=== PATIENT | female | born 1990 | race American Indian/Alaskan Native ===

== ENCOUNTER 2016-08-03 22:16 | Emergency (ER) | payer MEDICAID ==
[2016-08-03 23:25] VITALS: BP 123/81
--- NOTE | 2016-08-04 03:21 | Emergency Department Report ---
HPI - General Chief Complaint: Eye Problems Time Seen by Provider: 08/04/16 02:38 - HPI HPI: Patient is a 25-year-old female who states she has been to a temperature roommate who was diagnosed with conjunctivitis of the eye. Patient states yesterday she started to experience her left side aching and states mild swelling of that eye. Patient denies any seasonal allergies. Other than her eye itching and her concerns. Contact with her roommate she had no other problems She denies fevers/chills/loss of vision/pain in the eye/headache/blurred vision/ or any other problems. ED Past Medical Hx - Past Medical History Previous Medical History?: Yes Hx Hypertension: Yes Hx Seizures: Yes (r/t eclampsia 04/2011) - Surgical History Past Surgical History?: No - Social History Smoking Status: Current Every Day Smoker Substance Use Type: Alcohol - Medications Home Medications: Home Medications Medication Instructions Recorded Confirmed Last Taken Type Polymyxin B Sulf/Trimethoprim 1 - 2 drop OP Q3HR #10 ml 08/04/16 Unknown Rx [Polytrim Eye Drops [id number]/0.1%] ED Review of Systems ROS: Stated complaint: EYE INFECTION Other details as noted in HPI Constitutional: denies: chills, fever Eyes: denies: eye pain, eye discharge, vision change ENT: denies: ear pain, throat pain, hearing loss, epistaxis, congestion Respiratory: denies: cough, shortness of breath, wheezing Cardiovascular: denies: chest pain, palpitations Endocrine: no symptoms reported Gastrointestinal: denies: abdominal pain, nausea, diarrhea Genitourinary: denies: urgency, dysuria, frequency, hematuria, discharge Musculoskeletal: denies: back pain, joint swelling, arthralgia Skin: denies: rash, lesions Neurological: denies: headache, weakness, numbness, paresthesias, confusion Psychiatric: denies: anxiety, depression Hematological/Lymphatic: denies: easy bleeding, easy bruising Physical Exam - Physical Exam Vital Signs: Vital Signs 08/03/16 23:21 Temperature 99 F Pulse Rate 73 Respiratory 16 Rate Blood Pressure 123/81 [Right] O2 Sat by Pulse 100 Oximetry Physical Exam: GENERAL: Alert and oriented x3, no apparent distress, Normal Gait, atraumatic. HEAD: Head is normocephalic and a-traumatic. EYES: Extra ocular muscles are intact. Pupils are equal, round, and reactive to light and accommodation. Mild orbital edema, nontender to palpation. Sclerae is white nonerythematous bilaterally. Visual acuity test normal. NECK: Supple. Non edematous, No carotid bruits. No lymphadenopathy or thyromegaly. No C-spine tenderness LUNGS: Symetrical with respiration, No wheezing, no rales or crackles, CTAB. HEART: S1, S2 present, regular rate and rhythm without murmur, no rubs, no gallops. SKIN: Warm and dry, No lesions, No ulceration or induration present. ED Course Vital Signs 08/03/16 23:21 Temperature 99 F Pulse Rate 73 Respiratory 16 Rate Blood Pressure 123/81 [Right] O2 Sat by Pulse 100 Oximetry ED Medical Decision Making - Medical Decision Making 26 female presents with conjunctivitis contact ED course: Discussed the patient to use drops as prescribed for 5 days Discussed the patient contact the roommate Vital signs are normal patient is in no acute distress. Patient patient has no visual injuries or problems. Vision is intact. Discussed patient follow up with primary care physician as prescribed Patient states she understands instructions given and will follow up. Critical care attestation.: If time is entered above; I have spent that time in minutes in the direct care of this critically ill patient, excluding procedure time. ED Disposition Clinical Impression: Acute allergic conjunctivitis Qualifiers: Laterality: left Qualified Code(s): H10.12 - Acute atopic conjunctivitis, left eye Conjunctivitis Qualifiers: Conjunctivitis type: unspecified Laterality: left Qualified Code(s): H10.9 - Unspecified conjunctivitis Disposition: DISCHARGED TO HOME OR SELFCARE Is pt being admited?: No Does the pt Need Aspirin: No Condition: Stable Instructions: Conjunctivitis (ED) Prescriptions: Polymyxin B Sulf/Trimethoprim [Polytrim Eye Drops [id number]/0.1%] 1 - 2 drop OP Q3HR #10 ml Referrals: PRIMARY CARE, [Primary Care Provider] - 3-5 Days [facility] [Outside] - 3-5 Days Forms: Accompanied Note, Work/School Release Form(ED) Time of Disposition: 03:31
== END 2016-08-04 03:50 | disposition home or self-care (01) ==
LOC: ED 22:16
DX: H10.12 Acute atopic conjunctivitis, left eye (principal); H10.9 Unspecified conjunctivitis; I10 Essential (primary) hypertension; F17.200 Nicotine dependence, unspecified, uncomplicated
CPT/HCPCS: 99282

== ENCOUNTER 2018-05-12 17:08 | Emergency (ER) | payer MEDICAID ==
[2018-05-12] MEDS ORDERED: TYLENOL PO STA (17:55)
--- NOTE | 2018-05-12 17:56 | Emergency Department Report ---
Blank Doc - Documentation Documentation: 28 y/o c/o of throbbing headache associated with HTN, Fever of 105 at home, co ryza, chills and weakness. no visual changes or trauma. syncope
[2018-05-12 19:11] LABS: Basophils % (Auto) 0.4 % (0.0-1.8); Hematocrit 41.5 % (30.3-42.9); Hemoglobin 14.1 gm/dl (10.1-14.3); Lymphocytes # (Auto) 1.1 K/mm3 (1.2-5.4); Lymphocytes % (Auto) 15.2 % (13.4-35.0); Mean Corpuscular HGB Conc 34 % (30-34); Mean Corpuscular Volume 85 fl (79-97); Monocytes # (Auto) 0.9 K/mm3 (0.0-0.8); Monocytes % (Auto) 12.7 % (0.0-7.3); Platelet Count 152 K/mm3 (140-440); Red Blood Count 4.87 M/mm3 (3.65-5.03); Red Cell Distribution Width 13.7 % (13.2-15.2)
[2018-05-12 19:30] LABS: Bilirubin,Urine NEG (Negative); Blood,Urine NEG (Negative); Color,Urine Yellow (Yellow); Mucus,Urine FEW /HPF; Urobilinogen,Urine < 2.0 mg/dL (<2.0)
[2018-05-12 19:37] LABS: HCG Qualitative,Urine Negative (Negative)
[2018-05-12 20:00] LABS: BUN/Creatinine Ratio 9; Blood Urea Nitrogen 6 mg/dL (7-17); Calcium 9.4 mg/dL (8.4-10.2); Hemolysis Index 21
[2018-05-12 20:01] VITALS: BP 151/91
--- NOTE | 2018-05-12 20:19 | Emergency Department Report ---
ED General Adult HPI - General Chief complaint: Headache Stated complaint: HEADACHE/FEVER Time Seen by Provider: 05/12/18 17:53 Source: patient, EMS Mode of arrival: Ambulatory Limitations: No Limitations - History of Present Illness Initial comments: Patient is 28-year-old female, nontoxic, with no significant past medical history except for hypertension for which she is not taking any medication. Patient presented to the ER complaining of generalized body ache, fever, nausea and headache and congestion. Patient denied any neck pain, chest pain, shortness of breath or cough. Patient denied any weakness, numbness or tingling sensation. Severity scale (0 -10): 10 - Related Data Previous Rx's Medication Instructions Recorded Last Taken Type Polymyxin B Sulf/Trimethoprim 1 - 2 drop OP Q3HR #10 ml 08/04/16 Unknown Rx [Polytrim Eye Drops [id number]/0.1%] Allergies Allergy/AdvReac Type Severity Reaction Status Date / Time No Known Allergies Allergy Unverified 12/01/13 19:12 ED Review of Systems ROS: Stated complaint: HEADACHE/FEVER Other details as noted in HPI Comment: All other systems reviewed and negative Constitutional: fever. denies: chills ENT: congestion. denies: ear pain, throat pain, dental pain, hearing loss Respiratory: denies: cough, orthopnea, shortness of breath, SOB with exertion, SOB at rest, wheezing Cardiovascular: denies: chest pain, palpitations Gastrointestinal: denies: abdominal pain, nausea, vomiting, diarrhea, constipation, hematemesis, melena Genitourinary: denies: urgency, dysuria Neurological: headache. denies: weakness, numbness, paresthesias, confusion, abnormal gait ED Past Medical Hx - Past Medical History Hx Hypertension: Yes Hx Seizures: Yes (r/t eclampsia 04/2011) - Surgical History Past Surgical History?: No - Social History Smoking Status: Current Every Day Smoker Substance Use Type: Alcohol - Medications Home Medications: Home Medications Medication Instructions Recorded Confirmed Last Taken Type Polymyxin B Sulf/Trimethoprim 1 - 2 drop OP Q3HR #10 ml 08/04/16 Unknown Rx [Polytrim Eye Drops [id number]/0.1%] ED Physical Exam - General Limitations: No Limitations General appearance: alert, in no apparent distress - Head Head exam: Present: atraumatic, normocephalic, normal inspection - Eye Eye exam: Present: normal appearance, PERRL - ENT ENT exam: Present: normal exam, normal orophraynx, mucous membranes moist - Neck Neck exam: Present: normal inspection, full ROM. Absent: tenderness, meningismus, lymphadenopathy, thyromegaly - Respiratory Respiratory exam: Present: normal lung sounds bilaterally. Absent: respiratory distress, wheezes, rales, rhonchi, chest wall tenderness, accessory muscle use, decreased breath sounds, prolonged expiratory - Cardiovascular Cardiovascular Exam: Present: regular rate, normal rhythm, normal heart sounds - GI/Abdominal GI/Abdominal exam: Present: soft, normal bowel sounds. Absent: distended, tenderness, guarding, rebound, rigid, organomegaly, mass, bruit, pulsatile mass, hernia - Extremities Exam Extremities exam: Present: normal inspection, full ROM, normal capillary refill. Absent: pedal edema, calf tenderness - Back Exam Back exam: Present: normal inspection, full ROM. Absent: tenderness, CVA tenderness (R), CVA tenderness (L), muscle spasm, paraspinal tenderness, vertebral tenderness - Neurological Exam Neurological exam: Present: alert, oriented X3, CN II-XII intact, normal gait, reflexes normal - Skin Skin exam: Present: warm, intact, normal color ED Course Vital Signs 05/12/18 05/12/18 05/12/18 18:10 18:44 19:37 Temperature 99 F Pulse Rate 122 H Respiratory 16 15 18 Rate Blood Pressure 151/94 Blood Pressure [Right] O2 Sat by Pulse 100 Oximetry 05/12/18 20:00 Temperature 100.6 F H Pulse Rate 92 H Respiratory 16 Rate Blood Pressure Blood Pressure 151/91 [Right] O2 Sat by Pulse Oximetry ED Medical Decision Making - Lab Data Result diagrams: 05/12/18 18:49 05/12/18 18:49 - Medical Decision Making Patient is 28-year-old female, nontoxic, with no significant past medical history except for hypertension for which she is not taking any medication. Patient presented to the ER complaining of generalized body ache, fever, nausea and headache and congestion. Patient denied any neck pain, chest pain, shortness of breath or cough. Patient denied any weakness, numbness or tingling sensation. Patient received Toradol for pain and headache. Patient stated that she is feeling much better. Headache resolved. Patient is asking for a blood pressure medicine. Labs reviewed and is unremarkable. No evidence of meningism. I believe patient symptoms is most likely viral syndrome. I advised the patient to follow-up with her primary care physician in the next 2-3 days and to return to the ER if her symptoms are not improved. Critical care attestation.: If time is entered above; I have spent that time in minutes in the direct care of this critically ill patient, excluding procedure time. ED Disposition Clinical Impression: Fever, Headache, Viral syndrome Disposition: TO HOME OR SELFCARE Is pt being admited?: No Condition: Stable Instructions: Acute Headache (ED), Viral Syndrome (ED) Referrals: [facility] [Provider Group] - 3-5 Days
[2018-05-12] MEDS ORDERED: TORADOL IM ONE (20:20)
[2018-05-12] MEDS ORDERED: CATAPRES PO ONE (20:20)
== END 2018-05-12 20:47 | disposition home or self-care (01) ==
LOC: ED 17:08
DX: B34.9 Viral infection, unspecified (principal); I10 Essential (primary) hypertension; F17.200 Nicotine dependence, unspecified, uncomplicated
CPT/HCPCS: 36415; 80048; 81001; 81025; 85025; 96372; 99284; J1885